=== PATIENT | male | born 1960 | race Two or more races ===

== ENCOUNTER 2022-04-08 18:25 | Emergency (ER) | payer OTHER ==
[~2022-04-08] VITALS: Ht 167.6 cm; Wt 81.6 kg
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
--- NOTE | 2022-04-08 19:44 | NUR ---
PT TAKEN TO XRAY VIA W/C
--- NOTE | 2022-04-08 19:44 | NUR ---
Marcial hsieh in [place] - 04/08/22 at 1944 by BREEZY PT TAKEN TO CT VIA W/C
[2022-04-08] MEDS ORDERED: KETOROLAC TROMETHAMINE INJ 30 MG/ML VIAL ONE (19:57)
[2022-04-08] MEDS ORDERED: KETOROLAC TROMETHAMINE INJ 60 MG/2 ML VIAL IM ONE (20:00)
[2022-04-08] MEDS ORDERED: IBUP-1955 PO (20:50)
--- NOTE | 2022-04-08 21:10 | NUR ---
Patient discharged to home in stable condition. Written and verbal after care instructions given. Patient verbalizes understanding of instruction.
[2022-04-08 21:11] VITALS: BP 143/88
== END 2022-04-08 21:11 | disposition home or self-care (01) ==
LOC: ER 19:20
DX: S46.912A Strain of unspecified muscle, fascia and tendon at shoulder and upper arm level, left arm, initial encounter (principal); S46.911A Strain of unspecified muscle, fascia and tendon at shoulder and upper arm level, right arm, initial encounter; S16.1XXA Strain of muscle, fascia and tendon at neck level, initial encounter; E11.9 Type 2 diabetes mellitus without complications; Z60.2 Problems related to living alone; Z79.1 Long term (current) use of non-steroidal anti-inflammatories (NSAID); V43.52XA Car driver injured in collision with other type car in traffic accident, initial encounter; Y93.89 Activity, other specified; Y92.89 Other specified places as the place of occurrence of the external cause; Y99.8 Other external cause status
CPT/HCPCS: 99283; 96372; 72050; J1885

== ENCOUNTER 2022-10-06 16:23 | Emergency (ER) | payer OTHER ==
[~2022-10-06] VITALS: Ht 167.6 cm; Wt 79.4 kg
[~2022-10-06 16:23] MED LIST: IBUP-1955 PO
--- NOTE | 2022-10-06 16:40 | NUR ---
ON & OFF CHEST PAIN X 2 YEARS SPECIALLY DURING PHYSICAL ACTIVITY
--- NOTE | 2022-10-06 16:48 | NUR ---
PATIENT REQUESTED TO LEAVE AGAINST MEDICAL ADVISE, HE SAID THAT HE IS HAVING ANXIETY WHEN HE IS IN THE HOSPITAL. MD AT BEDSIDE TO EXPLAIN THE CONSEQUENCES OF LEAVING AGAINST MEDICAL ADVISE AND THAT INCLUDES . MD ALSO OFFERED ALTERNATIVES TO HELP THE PATIENT WITH ANXIETY LIKE GIVING HIM MEDICATIONS. THE SON IS ALSO AT BEDSIDE LISTENING TO THE CONVERSATION. PATIENT INSISTED THAT HE WANTS TO GO AMA , PATIENT SIGNED THE AMA FORM AND WALK HIMSELF OUT THE DEPARTMENT ACCOMPANIED BY HIS SON.
[2022-10-06 16:59] VITALS: BP 121/81
== END 2022-10-06 17:00 | disposition left against medical advice (07) ==
LOC: ER 16:27
DX: R07.89 Other chest pain (principal); R53.1 Weakness; E11.9 Type 2 diabetes mellitus without complications; Z60.2 Problems related to living alone; Z98.890 Other specified postprocedural states; Z79.899 Other long term (current) drug therapy